=== PATIENT | male | born 1935 | race Caucasian/White ===

== ENCOUNTER → 2017-11-25 | Outpatient (CLI) | payer OTHER ==
[~2017-11-25] MED LIST: ACETAMINOPHEN325 M1 PO; ALPRAZOLAM 0.50.5 M1 PO; AMLODIPINE BESY10 MG PO; ASA5UEC PO; AUGMENTIN 875875 M1 PO; CELEXA40 MG PO; CHLORTHALIDONE25 MG PO; COLACE100 MG PO; DEPO-TESTO200 MG/1 M IM; DIAZEPAM 5 MG5 MG PO; DITROPAN XL10 M1 PO; DUONEB 2.5-0.5 M3 ML INH; ENALAPRIL MALEA20 MG PO; FERRO-TIME325 MG PO; FISH OIL 1,0001 EAC5 PO; FISH OIL 1,001000 M1 PO; FLEXERIL PO; FLOMAX PO; FLONASE 0.05%50 MCG NASAL; FUROSEMIDE 20 M20 MG PO; GLUCOPHAGE1000 MG PO; HYDRALAZINE 2525 M1 OR; HYDROCODON-ACE1 EAC8 PO; IRON325 PO; K-DUR 20 MEQ T20 MEQ PO; KEFLEX500 MG PO; LEXAPRO20 MG PO; LIDODERM 5%1 PATCH; LOVASTAT40 PO; LOVASTATIN 20 M20 MG PO; LYRICA25 PO; MACROBID 100 M100 M1 PO; MEDROLDOSEPACK; MEVACOR10 MG PO; MULTIVITAMINS PO; NEURONTIN600 MG PO; NIACIN 500 MG500 M1 PO; NITROFURANTOIN100 MG PO; NOVOLOG100 UNIT/1; ONE-A-DAY MEN'1 EAC2 PO; OXYCONTIN CR 2020 MG PO; PERCOCET 5-3251 EACH PO; PRILOSEC 20 MG20 MG PO; PROTONIX40 M2 PO; REQUIP PO; ROXICODONE5 M1 PO; TRAMADOL 50 MG50 MG PO; VALIUM5 MG PO; VITAMIN D 5050000 I1 PO; ZOFRAN ODT4 MG PO; [UNRECOGNIZED DRUG - OTHER] PO
== END ==
LOC: M.ULTRA 16:00
DX: M79.661 Pain in right lower leg (principal)

== ENCOUNTER → 2017-12-02 | Outpatient (CLI) | payer OTHER | LOC: M.RAD 17:14 | DX: S91.301A Unspecified open wound, right foot, initial encounter (principal); M19.071 Primary osteoarthritis, right ankle and foot; X58.XXXA Exposure to other specified factors, initial encounter; Y93.89 Activity, other specified; Y92.89 Other specified places as the place of occurrence of the external cause; Y99.8 Other external cause status; E11.9 Type 2 diabetes mellitus without complications ==

== ENCOUNTER → 2019-01-24 | Outpatient (CLI) | payer OTHER | LOC: M.RAD 16:28 | DX: R09.89 Other specified symptoms and signs involving the circulatory and respiratory systems (principal); I11.9 Hypertensive heart disease without heart failure; R05 Cough; R06.2 Wheezing ==

== ENCOUNTER → 2019-12-01 | Outpatient (CLI) | payer OTHER | LOC: M.LAB 09:46 | PROVIDERS: ATTEND Family Medicine | DX: R19.7 Diarrhea, unspecified (principal); K59.00 Constipation, unspecified; R19.5 Other fecal abnormalities ==